=== PATIENT | female | born 1985 ===

== ENCOUNTER 2017-11-16 11:03 | Emergency (ER) | payer BC ==
[2017-11-16 11:35] VITALS: BP 122/66
[2017-11-16] MEDS ORDERED: PROVENTIL IH ONE (11:56)
--- NOTE | 2017-11-16 12:18 | Emergency Department Report ---
ED Female HPI - General Chief complaint: Abdominal Pain Stated complaint: ASTHMA/IRREGULAR SPOTTING BETWEEN PERIODS Time Seen by Provider: 11/16/17 11:48 Source: patient Mode of arrival: Ambulatory Limitations: No Limitations - History of Present Illness Initial comments: Ms Maria is a 32 year-old woman with hx of asthma who presents with various complaints. Vaginal spotting for the last two months. Also with some jurado/brown discharge for 1-2 weeks. LMP 2 weeks ago. Also, has asthma and needs refills on her albuterol and Breo. Is concerned, because she has been on Breo for 2 years and in this time period has gained 98 pounds. Worried because her sister had vaginal spotting and discharge, turned out she had an STD. Wants to be checked. No abdominal pain. No pain with urination. Normal stools. no fever. MD Complaint: vaginal discharge - Related Data Allergies Allergy/AdvReac Type Severity Reaction Status Date / Time No Known Allergies Allergy Verified 11/16/17 11:31 ED Review of Systems ROS: Stated complaint: ASTHMA/IRREGULAR SPOTTING BETWEEN PERIODS Other details as noted in HPI Comment: All other systems reviewed and negative ED Past Medical Hx - Past Medical History Hx Asthma: Yes - Social History Smoking Status: Never Smoker ED Physical Exam - General Limitations: No Limitations General appearance: alert, in no apparent distress - Head Head exam: Present: atraumatic, normocephalic - Eye Eye exam: Present: normal appearance - ENT ENT exam: Present: normal exam, mucous membranes moist - Neck Neck exam: Present: normal inspection. Absent: tenderness - Respiratory Respiratory exam: Present: wheezes. Absent: respiratory distress, rales - Cardiovascular Cardiovascular Exam: Present: regular rate, normal rhythm - GI/Abdominal GI/Abdominal exam: Present: soft. Absent: distended, tenderness, guarding, rebound - External exam: Present: normal external exam. Absent: erythema, swelling Speculum exam: Present: normal speculum exam, vaginal discharge. Absent: erythema, cervical discharge, vaginal bleeding, foreign body Bi-manual exam: Absent: cervical motion tendernes, adnexal tenderness, adnexal mass - Extremities Exam Extremities exam: Present: normal inspection - Back Exam Back exam: Present: normal inspection. Absent: CVA tenderness (R), CVA tenderness (L) - Neurological Exam Neurological exam: Present: alert, altered, normal gait - Skin Skin exam: Present: warm, dry, intact ED Course Vital Signs 11/16/17 11/16/17 11:10 11:44 Temperature 98.1 F Pulse Rate 71 Respiratory 18 17 Rate Blood Pressure 122/66 O2 Sat by Pulse 99 Oximetry ED Medical Decision Making - Lab Data Lab Results 11/16/17 Range/Units 12:03 Urine Color Yellow (Yellow) Urine Turbidity Clear (Clear) Urine pH 6.0 (5.0-7.0) Ur Specific [place] 1.013 (1.003-1.030) Urine Protein <15 mg/dl (Negative) mg/dL Urine Glucose (UA) Neg (Negative) mg/dL Urine Ketones Neg (Negative) mg/dL Urine Blood Neg (Negative) Urine Nitrite Neg (Negative) Urine Bilirubin Neg (Negative) Urine Urobilinogen < 2.0 (<2.0) mg/dL Ur Leukocyte Esterase Tr (Negative) Urine WBC (Auto) 3.0 (0.0-6.0) /HPF Urine RBC (Auto) 4.0 (0.0-6.0) /HPF U Epithel Cells (Auto) 3.0 (0-13.0) /HPF Urine Bacteria (Auto) 1+ (Negative) /HPF Urine HCG, Qual Negative (Negative) Microbiology 11/16/17 13:01 Wet Prep - Final Vaginal - Medical Decision Making Ms Maria is a 32 year-old woman who presents with vaginal dc and needs medication refill for albuterol. Vaginal dc for some time. Vaginal spotting for two months. Exam with mild suprapubic ttp, vaginal dc, no MT and no adnexal ttp. Suspect this is UTI vs STI vs . Low clinical concern for PID. UA clean. Wet prep with trich and clue cells. Had discussion with patient regarding risk of exposure to other STDs. Has elected for treatment for GC.CT as well. Rocephin and azithromycin here today. Home with flagyl 500mg BID x 7 days for trichomoniasis and BV. will be checked in for STI treatment as well. Not . Safe for dc to home with care instructions, return precautions. Critical care attestation.: If time is entered above; I have spent that time in minutes in the direct care of this critically ill patient, excluding procedure time. ED Disposition Clinical Impression: Bacterial vaginosis, Trichomoniasis Disposition: DC-01 TO HOME OR SELFCARE Is pt being admited?: No Does the pt Need Aspirin: No Condition: Stable Instructions: Abdominal Pain (ED), Bacterial Vaginosis (ED), Trichomoniasis (ED ) Referrals: PRIMARY CARE,MD [Primary Care Provider] - 3-5 Days Forms: STI Treatment and Prevention
[2017-11-16 12:53] LABS: Bacteria,Urine 1+ /HPF (Negative); Bilirubin,Urine NEG (Negative); Blood,Urine NEG (Negative); Color,Urine Yellow (Yellow); Protein,Urine <15 mg/dL mg/dL (Negative); Urobilinogen,Urine < 2.0 mg/dL (<2.0)
[2017-11-16 13:02] LABS: HCG Qualitative,Urine Negative (Negative)
[2017-11-16] MEDS ORDERED: ROCEPHIN IM ONE (14:04)
[2017-11-16] MEDS ORDERED: XYLOCAINE 1% MPF 5 mL INFILTRATI ONE (14:04)
[2017-11-16] MEDS ORDERED: ZITHROMAX PO ONE (14:05)
== END 2017-11-16 15:40 | disposition home or self-care (01) ==
LOC: ED 11:03
DX: N76.0 Acute vaginitis (principal); B96.89 Other specified bacterial agents as the cause of diseases classified elsewhere; A59.9 Trichomoniasis, unspecified; J45.909 Unspecified asthma, uncomplicated
CPT/HCPCS: 81001; 81025; 87210; 87591; 94640; 96372; 99284; J0696

== ENCOUNTER 2017-11-21 12:34 | Emergency (ER) | payer BC ==
[2017-11-21 12:46] VITALS: BP 131/81
[2017-11-21] MEDS ORDERED: ATROVENT IH ONE (12:58)
[2017-11-21] MEDS ORDERED: PROVENTIL IH ONE (12:58)
--- NOTE | 2017-11-21 13:00 | Emergency Department Report ---
Blank Doc - Documentation Documentation: Patient is a 32-year-old black female with past history of asthma who is here for 3 days of asthma asthma exacerbation. Patient takes Briel for maintenance and is run out of this medication. Patient also has albuterol rescue inhaler which is not helping. Patient's his shortness of breath especially when walking and. Patient denies any fevers chills nausea vomiting at this time. Brief physical exam patient does have diffuse whee. Patient will be given albuterol Atrovent treatment with IV Solu-Medrol the patient will be reassessed. Ze
--- NOTE | 2017-11-21 13:59 | Emergency Department Report ---
ED Asthma HPI - General Chief Complaint: Adult Asthma Stated Complaint: DIFFICULTY BREATHING Time Seen by Provider: 11/21/17 12:55 Source: patient Mode of arrival: Ambulatory Limitations: No Limitations - History of Present Illness Initial Comments: Patient is a 32-year-old black female with past history of asthma who is here for 3 days of asthma asthma exacerbation. Patient takes Briel for maintenance and is run out of this medication. Patient also has albuterol rescue inhaler which is not helping. Patient's his shortness of breath especially when walking and. Patient denies any fevers chills nausea vomiting at this time. MD Complaint: "asthma attack" Asthma History: childhood onset Severity: moderate - Related Data Current Asthma Therapy: inhaled bronchodilator Previous Rx's Medication Instructions Recorded Last Taken Type metroNIDAZOLE [Metronidazole] 500 mg PO BID #14 tablet 11/16/17 Unknown Rx Albuterol Sulfate [Ventolin HFA] 2 puff IH Q4H PRN #1 hfa.aer.ad 11/21/17 Unknown Rx Benzonatate [Tessalon Perles] 100 mg PO Q8HR #10 capsule 11/21/17 Unknown Rx Fluticasone/Vilanterol [Breo 1 each IH QDAY #1 aer.pow.ba 11/21/17 Unknown Rx Ellipta 100-25 Mcg INH] Prednisone [predniSONE 10 mg 10 mg PO .TAPER #1 tab.ds.pk 11/21/17 Unknown Rx (6-Day Pack, 21 Tabs)] Allergies Allergy/AdvReac Type Severity Reaction Status Date / Time No Known Allergies Allergy Verified 11/16/17 11:31 ED Review of Systems ROS: Stated complaint: DIFFICULTY BREATHING Other details as noted in HPI Comment: All other systems reviewed and negative ED Past Medical Hx - Past Medical History Hx Asthma: Yes - Surgical History Past Surgical History?: No - Social History Smoking Status: Never Smoker Substance Use Type: Alcohol - Medications Home Medications: Home Medications Medication Instructions Recorded Confirmed Last Taken Type metroNIDAZOLE [Metronidazole] 500 mg PO BID #14 tablet 11/16/17 Unknown Rx Albuterol Sulfate [Ventolin HFA] 2 puff IH Q4H PRN #1 hfa.aer.ad 11/21/17 Unknown Rx Benzonatate [Tessalon Perles] 100 mg PO Q8HR #10 capsule 11/21/17 Unknown Rx Fluticasone/Vilanterol [Breo 1 each IH QDAY #1 aer.pow.ba 11/21/17 Unknown Rx Ellipta 100-25 Mcg INH] Prednisone [predniSONE 10 mg 10 mg PO .TAPER #1 tab.ds.pk 11/21/17 Unknown Rx (6-Day Pack, 21 Tabs)] ED Physical Exam - General Limitations: No Limitations General appearance: alert, in no apparent distress - Head Head exam: Present: atraumatic, normocephalic - Eye Eye exam: Present: normal appearance - ENT ENT exam: Present: mucous membranes moist - Neck Neck exam: Present: normal inspection - Respiratory Respiratory exam: Present: wheezes. Absent: normal lung sounds bilaterally, respiratory distress, rales, rhonchi - Cardiovascular Cardiovascular Exam: Present: regular rate, normal rhythm. Absent: systolic murmur, diastolic murmur, rubs, gallop - GI/Abdominal GI/Abdominal exam: Present: soft, normal bowel sounds - Extremities Exam Extremities exam: Present: normal inspection - Back Exam Back exam: Present: normal inspection - Neurological Exam Neurological exam: Present: alert, oriented X3 - Psychiatric Psychiatric exam: Present: normal affect, normal mood - Skin Skin exam: Present: warm, dry, intact, normal color. Absent: rash ED Course Vital Signs 11/21/17 12:42 Temperature 98.8 F Pulse Rate 82 Respiratory 18 Rate Blood Pressure 131/81 O2 Sat by Pulse 99 Oximetry ED Medical Decision Making - Medical Decision Making Patient received a nebulized treatment for an hour is feeling improved. Wheezing still present but lessened. Patient feels as though she stable go home and feels that she is near her baseline. Patient had meds refilled be discharged home. Critical care attestation.: If time is entered above; I have spent that time in minutes in the direct care of this critically ill patient, excluding procedure time. ED Disposition Clinical Impression: Asthma exacerbation Qualifiers: Asthma severity: moderate Asthma persistence: unspecified Qualified Code(s): J45.901 - Unspecified asthma with (acute) exacerbation Disposition: - TO HOME OR SELFCARE Is pt being admited?: No Does the pt Need Aspirin: No Condition: Stable Instructions: Asthma (ED) Prescriptions: Albuterol Sulfate [Ventolin HFA] 2 puff IH Q4H PRN #1 hfa.aer.ad PRN Reason: Shortness Of Breath Benzonatate [Tessalon Perles] 100 mg PO Q8HR #10 capsule Fluticasone/Vilanterol [Breo Ellipta 100-25 Mcg INH] 1 each IH QDAY #1 aer.pow.ba Prednisone [predniSONE 10 mg (6-Day Pack, 21 Tabs)] 10 mg PO .TAPER #1 tab.ds.pk Referrals: PRIMARY CARE, [Primary Care Provider] - 3-5 Days
== END 2017-11-21 14:22 | disposition home or self-care (01) ==
LOC: ED 12:34
DX: J45.901 Unspecified asthma with (acute) exacerbation (principal)
CPT/HCPCS: 96374; 99283; J2930

== ENCOUNTER 2018-01-23 12:57 | Emergency (ER) | payer SELFPAY ==
[2018-01-23 13:36] VITALS: BP 104/77
[2018-01-23] MEDS ORDERED: PROVENTIL IH ONE (16:44)
[2018-01-23] MEDS ORDERED: ATROVENT IH ONE (16:44)
[2018-01-23] MEDS ORDERED: SOLU-Medrol IM ONE (16:44)
--- NOTE | 2018-01-23 16:49 | Emergency Department Report ---
ED Asthma HPI - General Chief Complaint: Adult Asthma Stated Complaint: ASTHMA Time Seen by Provider: 01/23/18 16:35 Source: patient Mode of arrival: Ambulatory Limitations: No Limitations - History of Present Illness MD Complaint: shortness of breath, wheezing -: days(s) (3) Asthma History: followed by specialist Severity: mild Context: ran out of meds (Breo) Associated Symptoms: dry cough. denies: fever - Related Data Previous Rx's Medication Instructions Recorded Last Taken Type metroNIDAZOLE [Metronidazole] 500 mg PO BID #14 tablet 11/16/17 Unknown Rx Albuterol Sulfate [Ventolin HFA] 2 puff IH Q4H PRN #1 hfa.aer.ad 11/21/17 Unknown Rx Benzonatate [Tessalon Perles] 100 mg PO Q8HR #10 capsule 11/21/17 Unknown Rx Fluticasone/Vilanterol [Breo 1 each IH QDAY #1 aer.pow.ba 11/21/17 Unknown Rx Ellipta 100-25 Mcg INH] Prednisone [predniSONE 10 mg 10 mg PO .TAPER #1 tab.ds.pk 11/21/17 Unknown Rx (6-Day Pack, 21 Tabs)] Fluticasone/Vilanterol [Breo 1 each IH DAILY #1 aer.pow.ba 01/23/18 Unknown Rx Ellipta 100-25 Mcg INH] Allergies Allergy/AdvReac Type Severity Reaction Status Date / Time No Known Allergies Allergy Verified 11/16/17 11:31 ED Review of Systems ROS: Stated complaint: ASTHMA Other details as noted in HPI Comment: All other systems reviewed and negative Constitutional: denies: chills, fever Respiratory: cough, shortness of breath, wheezing Cardiovascular: chest pain ED Past Medical Hx - Past Medical History Hx Asthma: Yes - Social History Smoking Status: Never Smoker Substance Use Type: Alcohol - Medications Home Medications: Home Medications Medication Instructions Recorded Confirmed Last Taken Type metroNIDAZOLE [Metronidazole] 500 mg PO BID #14 tablet 11/16/17 Unknown Rx Albuterol Sulfate [Ventolin HFA] 2 puff IH Q4H PRN #1 hfa.aer.ad 11/21/17 Unknown Rx Benzonatate [Tessalon Perles] 100 mg PO Q8HR #10 capsule 11/21/17 Unknown Rx Fluticasone/Vilanterol [Breo 1 each IH QDAY #1 aer.pow.ba 11/21/17 Unknown Rx Ellipta 100-25 Mcg INH] Prednisone [predniSONE 10 mg 10 mg PO .TAPER #1 tab.ds.pk 11/21/17 Unknown Rx (6-Day Pack, 21 Tabs)] Fluticasone/Vilanterol [Breo 1 each IH DAILY #1 aer.ba 01/23/18 Unknown Rx Ellipta 100-25 Mcg INH] ED Physical Exam - General Limitations: No Limitations General appearance: alert, in no apparent distress - Head Head exam: Present: atraumatic, normocephalic - Eye Eye exam: Present: normal appearance - Neck Neck exam: Present: normal inspection - Respiratory Respiratory exam: Present: wheezes (scant wheezig in left lung field) - Cardiovascular Cardiovascular Exam: Present: regular rate, normal rhythm - GI/Abdominal GI/Abdominal exam: Present: soft. Absent: tenderness - Extremities Exam Extremities exam: Present: normal inspection - Neurological Exam Neurological exam: Present: alert, oriented X3 - Psychiatric Psychiatric exam: Present: normal affect, normal mood - Skin Skin exam: Present: warm, dry, intact, normal color ED Course Vital Signs 01/23/18 01/23/18 01/23/18 13:32 16:41 17:22 Temperature 98.9 F Pulse Rate 99 H Pulse Rate [ 82 Throughout] Respiratory 18 18 Rate Respiratory 22 Rate [ Throughout] Blood Pressure 104/77 O2 Sat by Pulse 98 Oximetry - Reevaluation(s) Reevaluation #1: 01/23/18 17:27 Neb treatments finished. Wheezing resolved. Patient feeling much better. Will DC home. ED Medical Decision Making - Medical Decision Making 32-year-old female with history of asthma presents to ED with shortness of breath and wheezing. Patient reports needs refill on Breo. Nebulizer treatment given, symptoms improved, will DC home - Differential Diagnosis asthma Critical care attestation.: If time is entered above; I have spent that time in minutes in the direct care of this critically ill patient, excluding procedure time. ED Disposition Clinical Impression: Asthma with acute exacerbation Disposition: DC-01 TO HOME OR SELFCARE Is pt being admited?: No Condition: Stable Instructions: Asthma (ED) Prescriptions: Fluticasone/Vilanterol [Breo Ellipta 100-25 Mcg INH] 1 each IH DAILY #1 aerbelkis Referrals: PRIMARY CARE, [Primary Care Provider] - 3-5 Days
== END 2018-01-23 17:42 | disposition home or self-care (01) ==
LOC: ED 12:57
DX: J45.901 Unspecified asthma with (acute) exacerbation (principal)
CPT/HCPCS: 94640; 96372; 99282; J2930

== ENCOUNTER 2018-11-21 16:12 | Outpatient (CLI) | payer MEDICAID ==
[2018-11-21] MEDS ORDERED: LACTATED RINGERS 500 ML IV ONE (17:22)
[2018-11-21 17:47] VITALS: BP 136/64
[2018-11-21 18:10] LABS: Bacteria,Urine 1+ /HPF (Negative); Bilirubin,Urine NEG (Negative); Blood,Urine NEG (Negative); Color,Urine Yellow (Yellow); Mucus,Urine FEW /HPF; Urobilinogen,Urine < 2.0 mg/dL (<2.0)
--- NOTE | 2018-11-21 18:42 | Ultrasound Report ---
Limited OB Ultrasound Biophysical profile HISTORY: Patient complaining of leaking amniotic fluid, estimated gestational age of 34 weeks and 0 d ays by last menstrual period. TECHNIQUE: Grayscale and color Doppler imaging performed. COMPARISON: None FINDINGS: On limited OB ultrasound there is a single intrauterine gestation which is cephalic in presentation. ELSA is 11. heart rate is 143 bpm. Placenta is positioned anteriorly. The fetus received a score of 2 out of 2 for breathing movement, movement, posture, and qualitative amniotic fluid volume. Total score was 8 out of 8. IMPRESSION: 1. Single viable intrauterine gestation as above on this limited OB ultrasound. 2. Normal biophysical profile. Signer Name: Kem Rawls MD Signed: 11/21/2018 6:37 PM Workstation Name: [id number]
== END 2018-11-21 18:58 | disposition home or self-care (01) ==
LOC: TRG 16:12
PROVIDERS: ATTEND Obstetrics & Gynecology
DX: O47.03 False labor before 37 completed weeks of gestation, third trimester (principal); Z3A.34 34 weeks gestation of pregnancy
CPT/HCPCS: 76815; 76819; 81001

== ENCOUNTER 2018-12-12 22:58 | Outpatient (CLI) | payer MEDICAID ==
[2018-12-13 01:16] LABS: Bilirubin,Urine NEG (Negative); Blood,Urine NEG (Negative); Color,Urine Yellow (Yellow); Mucus,Urine 1+ /HPF; Urobilinogen,Urine < 2.0 mg/dL (<2.0)
--- NOTE | 2018-12-13 02:28 | Ultrasound Report ---
US OB BPP wo non-stress, US OB limited INDICATION / CLINICAL INFORMATION: for BPP, ELSA. COMPARISON: 11/21/2018 FINDINGS: A single live fetus is seen in breech position. ELSA is 6.3 which is slightly decreased. heart r ate is 131. BPP is 8 out of 8 IMPRESSION: Single live fetus in breech position. ELSA is 6.3 and heart rate is 131. BPP is 8 out of a Signer Name: Jair Mittal MD FACR Signed: 12/13/2018 2:24 AM Workstation Name: [id number]
[2018-12-13 02:32] LABS: Hematocrit 30.8 % (30.3-42.9); Hemoglobin 10.7 gm/dl (10.1-14.3); Mean Corpuscular HGB Conc 35 % (30-34); Mean Corpuscular Volume 93 fl (79-97); Platelet Count 286 K/mm3 (140-440); Red Blood Count 3.32 M/mm3 (3.65-5.03); Red Cell Distribution Width 14.3 % (13.2-15.2)
[2018-12-13 02:49] LABS: Alanine Aminotransferase 16 units/L (7-56)
[2018-12-13 03:09] LABS: Uric Acid 3.6 mg/dL (3.5-7.6)
[2018-12-13 03:23] VITALS: BP 116/58
== END 2018-12-13 03:40 | disposition home or self-care (01) ==
LOC: TRG 22:58
PROVIDERS: ATTEND Obstetrics & Gynecology
DX: O47.03 False labor before 37 completed weeks of gestation, third trimester (principal); O99.513 Diseases of the respiratory system complicating pregnancy, third trimester; J45.909 Unspecified asthma, uncomplicated; Z3A.37 37 weeks gestation of pregnancy
CPT/HCPCS: 36415; 76815; 76819; 81001; 82565; 83615; 84450; 84460; 84550; 85027

== ENCOUNTER 2019-01-01 18:14 | Inpatient (IN) | payer MEDICAID ==
[2019-01-01 19:37] LABS: Bilirubin,Urine NEG (Negative); Blood,Urine NEG (Negative); Color,Urine Yellow (Yellow); Mucus,Urine 1+ /HPF; Urobilinogen,Urine < 2.0 mg/dL (<2.0)
[2019-01-01 21:03] LABS: Alanine Aminotransferase 20 units/L (7-56); Uric Acid 4.1 mg/dL (3.5-7.6)
[2019-01-01 21:06] LABS: Hematocrit 33.1 % (30.3-42.9); Hemoglobin 11.2 gm/dl (10.1-14.3); Mean Corpuscular HGB Conc 34 % (30-34); Mean Corpuscular Volume 93 fl (79-97); Platelet Count 318 K/mm3 (140-440); Red Blood Count 3.57 M/mm3 (3.65-5.03); Red Cell Distribution Width 14.7 % (13.2-15.2)
--- NOTE | 2019-01-01 21:15 | Ultrasound Report ---
US OB BPP WO NON-STRESS, US OB LIMITED INDICATION / CLINICAL INFORMATION: induced hypertension. TECHNIQUE: Transabdominal scanning was performed. COMPARISON: Ultrasound dated 12/13/2018 and 11/21/2018 FINDINGS: Single intrauterine gestation in cephalic position. Amniotic fluid index is 12.9 cm which is within normal limits. heart rate is 139 bpm. BREATHING MOVEMENT = 2 GROSS BODY MOVEMENT = 2 TONE = 2 QUALITATIVE AMNIOTIC FLUID VOLUME = 2 TOTAL BIOPHYSICAL SCORE = 8/8 IMPRESSION: 1. Normal biophysical score of 8/8. Signer Name: Mick Nolasco MD Signed: 01/01/2019 9:11 PM Workstation Name: [id number]
[2019-01-01] MEDS ORDERED: MINERAL OIL PO PRN (21:47)
[2019-01-01] MEDS ORDERED: BRETHINE IVP PRN (21:47)
[2019-01-01] MEDS ORDERED: XYLOCAINE 2% INFILTRATI ONE (21:47)
[2019-01-01] MEDS ORDERED: AMPICILLIN/NS 2 GM/100 ML 2 GM/100 ML BAG IV ONE (21:47)
[2019-01-01] MEDS ORDERED: ZOFRAN IV PRN (21:47)
[2019-01-01] MEDS ORDERED: SUBLIMAZE IV PRN (21:47)
[2019-01-01] MEDS ORDERED: NARCAN 0.4 MG/1 ML IV PRN (21:47)
[2019-01-01] MEDS ORDERED: CERVIDIL VG ONE (21:47)
[2019-01-01] MEDS ORDERED: STADOL IV PRN (21:47)
[2019-01-01] MEDS ORDERED: BRETHINE SUB-Q PRN (21:47)
[2019-01-01] MEDS ORDERED: PITOCin/NS 20 UNIT/1000ML DRIP 20 UNITS/1,000 ML BAG IV SCH (22:00)
[2019-01-02] MEDS ORDERED: AMPICILLIN/NS 1 GM/50 ML 1 GM/50 ML BAG IV SCH (01:50)
[2019-01-02] MEDS: AMBIEN PO PRN ×2 (02:31→23:25)
--- NOTE | 2019-01-02 07:27 | History and Physical Report ---
History of Present Illness Date of examination: 01/02/19 Date of admission: 01/01/19 22:07 Chief complaint: elevated blood pressures History of present illness: Pt is a 33 year old -[place] JEANETH 01/02/19 at 40w0d presented to triage last night with elevated blood pressures 140/90s and was admitted for induction of labor secondary to gestational hypertension. She has had care at [facility] since 17 wks with comanagement by M complicated by morbid obesity, genital herpes without lesion or prodrome, and asthma. She is GBS Negative. Past History Past Medical History: asthma, other (Morbid Obesity ) Past Surgical History: no surgical history [employer] History: herpes Family/Genetic History: diabetes Social history: no significant social history - Obstetrical History Expected Date of Delivery: 01/02/19 Actual Gestation: 40 Week(s) 0 Day(s) : 2 Para: 1 Hx # Term Pregnancies: 1 Number of Pregnancies: 0 Spontaneous Abortions: 0 Induced : 0 Number of Living Children: 1 Medications and Allergies Allergies Allergy/AdvReac Type Severity Reaction Status Date / Time No Known Allergies Allergy Verified 11/16/17 11:31 Home Medications Medication Instructions Recorded Confirmed Last Taken Type metroNIDAZOLE [Metronidazole] 500 mg PO BID #14 tablet 11/16/17 Unknown Rx Albuterol Sulfate [Ventolin HFA] 2 puff IH Q4H PRN #1 hfa.aer.ad 11/21/17 Unknown Rx Benzonatate [Tessalon Perles] 100 mg PO Q8HR #10 capsule 11/21/17 Unknown Rx Fluticasone/Vilanterol [Breo 1 each IH QDAY #1 aer.pow.ba 11/21/17 Unknown Rx Ellipta 100-25 Mcg INH] Prednisone [predniSONE 10 mg 10 mg PO .TAPER #1 tab.ds.pk 11/21/17 Unknown Rx (6-Day Pack, 21 Tabs)] Fluticasone/Vilanterol [Breo 1 each IH DAILY #1 aer.pow.ba 01/23/18 Unknown Rx Ellipta 100-25 Mcg INH] Active Meds: Active Medications Butorphanol Tartrate (Stadol) 2 mg IV Q2H PRN PRN Reason: Pain , Severe (7-10) Ephedrine Sulfate (Ephedrine Sulfate) 10 mg IV Q2M PRN PRN Reason: Hypotension Fentanyl (Sublimaze) 100 mcg IV Q2H PRN PRN Reason: Labor Pain Oxytocin/Sodium Chloride (Pitocin/Ns 20 Unit/1000ml Drip) 20 units in 1,000 mls @ 125 mls/hr IV DIRECT KALEB Oxytocin/Sodium Chloride (Pitocin/Ns 30 Unit/500ml) 30 units in 500 mls @ 2 mls/hr IV TITR KALEB; Protocol Lactated Ringer's (Lactated Ringers) 1,000 mls @ 125 mls/hr IV DIRECT KALEB Ampicillin Sodium (Ampicillin/Ns 1 Gm/50 Ml) 1 gm in 50 mls @ 100 mls/hr IV Q4HR KALEB; Protocol Mineral Oil (Mineral Oil) 30 ml PO QHS PRN PRN Reason: Constipation Naloxone HCl (Narcan 0.4 Mg/1 Ml) 0.1 mg IV Q2MIN PRN PRN Reason: Res Rate </= 8 or 02 SAT < 92% Ondansetron HCl (Zofran) 4 mg IV Q8H PRN PRN Reason: Nausea And Vomiting Terbutaline Sulfate (Brethine) 0.25 mg SUB-Q ONCE PRN PRN Reason: Hyperstimulation/Hypertonicity Terbutaline Sulfate (Brethine) 0.25 mg IVP ONCE PRN PRN Reason: Hyperstimulation/Hypertonicity Zolpidem Tartrate (Ambien) 10 mg PO QHS PRN PRN Reason: Insomnia Last Admin: 01/02/19 02:31 Dose: 10 mg Documented by: Review of Systems All systems: negative - Vital Signs Vital signs: Vital Signs Pulse BP 108 H 142/103 01/01/19 18:42 01/01/19 18:42 Temp Pulse Resp BP Pulse Ox 97 H 20 120/64 01/02/19 03:58 01/01/19 18:53 01/02/19 03:58 - Physical Exam Breasts: Positive: deferred Cardiovascular: Regular rate Lungs: Positive: Clear to auscultation Abdomen: Positive: soft (obese, gravid ) Uterus: Positive: enlarged (gravid ) Extremities: Positive: edema (trace) - Obstetrical FHR: auscultation normal Cervical Dilatation: 0 (per RN ) Results Result Diagrams: 01/01/19 19:37 01/01/19 19:37 Abnormal lab results 01/01/19 01/01/19 Range/Units 19:37 19:37 RBC 3.57 L (3.65-5.03) M/mm3 Creatinine 0.4 L (0.7-1.2) mg/dL Lactate Dehydrogenase 295 H (91-180) units/L All other labs normal. Assessment and Plan A: IUP at 40w0d Gestational HTN Morbid Obesity Asthma Genital Herpes without lesion or prodrome GBS Negative NO VACCINES FOR PT OR BABY, DESIRES NO BATH FOR 24 HRS AFTER P: Admit to labor and delivery PIH panel Induction of labor with cervidil Closely monitor maternal and status.
[2019-01-02] MEDS: LACTATED RINGERS 1,000 ML IV SCH ×2 (09:39→18:52)
[2019-01-02] MEDS ORDERED: CERVIDIL VG ONE (16:30)
[2019-01-03] MEDS: PITOCin/NS 30 UNIT/500ML 30 UNITS/500 ML BAG IV SCH ×2 (05:08→06:39)
--- NOTE | 2019-01-03 13:02 | Progress Note ---
Assessment and Plan Reviewed r/b/a of Cook's Catheter. Pt requests placement. Attempted to place, unsuccessful due to maternal habitus and high station. Will continue low dose Pitocin. Subjective - Subjective Date of service: 01/03/19 Principal diagnosis: Gestational hypertension at term Interval history: Pt is a 33 yo at 40 wks EGA. She has been admitted for IOL for gestational hypertension. She is s/p Cervidil x2 and now low dose Pitocin. SVE ft/th/high. Patient reports: movement normal, contractions, no new complaints, no loss of fluid, no vaginal bleeding Objective - Vital Signs Vital Signs: Vital Signs - 12hr 01/03/19 01/03/19 01/03/19 03:23 04:56 04:57 Pulse Rate 83 90 81 Blood Pressure 119/81 154/101 158/100 O2 Sat by Pulse Oximetry 01/03/19 01/03/19 01/03/19 04:58 05:38 06:55 Pulse Rate 85 74 75 Blood Pressure 149/92 132/79 142/85 O2 Sat by Pulse Oximetry 01/03/19 01/03/19 01/03/19 10:57 11:02 11:07 Pulse Rate 98 H 74 100 H Blood Pressure O2 Sat by Pulse 98 99 99 Oximetry 01/03/19 01/03/19 01/03/19 11:12 11:17 11:22 Pulse Rate 97 H 98 H 96 H Blood Pressure O2 Sat by Pulse 100 99 98 Oximetry 01/03/19 01/03/19 01/03/19 11:27 11:32 11:37 Pulse Rate 95 H 92 H 87 Blood Pressure O2 Sat by Pulse 98 98 97 Oximetry 01/03/19 01/03/19 01/03/19 11:42 11:47 11:52 Pulse Rate 91 H 108 H 89 Blood Pressure O2 Sat by Pulse 98 98 99 Oximetry - Exam Abdomen: Present: normal appearance (gravid), soft Uterus: Present: normal FHR: auscultation normal, category 1 Uterine Contraction Monitor Mode: External Cervical Dilatation: 0.5 Cervical Effacement Percentage: 10 station: high Uterine Contraction Frequency (min): 7 Uterine Contraction Pattern: Irregular Uterine Tone Measurement Phase: Resting (soft) Extremities: normal - Labs Labs: Abnormal Labs 01/01/19 01/01/19 19:37 19:37 RBC 3.57 L Creatinine 0.4 L Lactate Dehydrogenase 295 H
[2019-01-03] MEDS: AMBIEN PO PRN (23:20)
[2019-01-04] MEDS: LACTATED RINGERS 1,000 ML IV SCH (00:13)
[2019-01-04] MEDS: PITOCin/NS 30 UNIT/500ML 30 UNITS/500 ML BAG IV SCH ×2 (00:13→05:32)
--- NOTE | 2019-01-04 01:25 | Event Note ---
Date: 01/04/19 Nurse called for a patient with IOL for MO. Per the nurse there was a difficulty in keeping the patient on the monitor. As I arrived NST reactive baseline 120- 130s. cat1. Pelvic exam ft/thick /high. Will continue to follow closely with maternal and status. Pitocin off for now. Will restart pitocin at low dose.
[2019-01-04 07:39] LABS: Basophils % (Auto) 0.4 % (0.0-1.8); Eosinophils # (Auto) 0.1 K/mm3 (0.0-0.4); Hematocrit 29.4 % (30.3-42.9); Lymphocytes % (Auto) 33.7 % (13.4-35.0); Mean Corpuscular HGB Conc 34 % (30-34); Mean Corpuscular Volume 93 fl (79-97); Monocytes # (Auto) 0.5 K/mm3 (0.0-0.8); Platelet Count 267 K/mm3 (140-440); Red Blood Count 3.17 M/mm3 (3.65-5.03); Red Cell Distribution Width 14.7 % (13.2-15.2)
--- NOTE | 2019-01-04 07:50 | Event Note ---
Date: 01/04/19 Pt without complaints. Category II tracing. Cervix fingertip at last exam. Plan to proceed with primary section for failed induction.
[2019-01-04] MEDS ORDERED: LACTATED RINGERS 1,000 ML IV SCH (08:00)
[2019-01-04] MEDS ORDERED: PITOCin/NS 20 UNIT/1000ML DRIP 20 UNITS/1,000 ML BAG IV SCH ×2 (08:00→15:31)
[2019-01-04] MEDS ORDERED: PEPCID IV NR (08:30)
[2019-01-04] MEDS ORDERED: ceFAZolin 3 GM in NACL 0.9% 100 ML IV NR (08:30)
[2019-01-04] MEDS ORDERED: BICITRA PO NR (08:30)
[2019-01-04] MEDS ORDERED: REGLAN IV NR (08:30)
[2019-01-04] MEDS ORDERED: PHENERGAN PR PRN (10:15)
[2019-01-04] MEDS ORDERED: NARCAN 0.4 MG/1 ML IV PRN ×2 (10:15→15:31)
[2019-01-04] MEDS ORDERED: PHENERGAN PO PRN (10:15)
[2019-01-04] MEDS ORDERED: ZOFRAN IV PRN ×2 (10:15→15:31)
[2019-01-04] MEDS ORDERED: DILAUDID IV PRN ×2 (10:15)
--- NOTE | 2019-01-04 10:15 | Anesthesia Consultation ---
Anesthesia Consult and Med Hx Date of service: 01/04/19 - Airway Anesthetic Teeth Evaluation: Good ROM Head & Neck: Adequate Mental/Hyoid Distance: Adequate Mallampati Class: Class II Intubation Access Assessment: Good - Pulmonary Exam CTA: Yes - Cardiac Exam Cardiac Exam: RRR - Pre-Operative Health Status ASA Pre-Surgery Classification: ASA2 Proposed Anesthetic Plan: Spinal - Pulmonary Hx Asthma: Yes (last attack at 3mths ) COPD: No Hx Pneumonia: No - Cardiovascular System Hx Hypertension: No - Central Nervous System Hx Seizures: No Hx Psychiatric Problems: No - Endocrine Hx Renal Disease: No Hx End Stage Renal Disease: No Hx Hypothyroidism: No Hx Hyperthyroidism: No - Hematic Hx Anemia: No Hx Sickle Cell Disease: No - Other Systems Hx Alcohol Use: No
--- NOTE | 2019-01-04 10:15 | Anesthesia Day of Surgery ---
Anesthesia Day of Surgery - Day of Surgery Patient Examined: Yes Patient H&P Reviewed: Yes Patient is NPO: Yes
[2019-01-04] MEDS ORDERED: DEXMEDETOMIDINE IV ONE (10:23)
[2019-01-04] MEDS ORDERED: SODIUM CHLORIDE FLUSH SYRINGE 10 ML IV NR (11:00)
[2019-01-04] MEDS ORDERED: NACL 0.9% IR ONE (12:15)
[2019-01-04] MEDS ORDERED: WATER FOR IRRIG STERILE IR ONE (12:15)
[2019-01-04] MEDS ORDERED: ZOFRAN ONE (12:51)
[2019-01-04] MEDS ORDERED: TORADOL ONE (12:51)
[2019-01-04] MEDS ORDERED: BENADRYL ONE (12:51)
--- NOTE | 2019-01-04 13:11 | Procedure Note ---
OB Delivery Note - Delivery Date of Delivery: 01/04/19 Surgeon: ELLEN VILLANUEVA Estimated blood loss: other (700 mL) - Section Preop diagnosis: arrest of dilation, other (failed induction ) Postop diagnosis: same section procedure: section, primary low transverse Disposition: PACU Complications: none Narrative: Please see operative report - Infant A at 1 minute: 8 at 5 minutes: 9 Infant Gender: Female (3180g (7lb 0z) @ 1224 pm)
--- NOTE | 2019-01-04 13:18 | Operative Report ---
Operative Report Operative Report: Date of procedure: December Preoperative diagnosis: 1) IUP at 40w2d 2 Failed Induction of Labor 3) Gesta tional HTN 4) Morbid Obesity BMI 54 Postoperative diagnosis: Same Procedure: Primary low transverse section Surgeon: Laure Schaffer MD Anesthesia: Regional Findings: 1) Viable female , Apgars 8 and 9, weight 3180g, (7 lb 0 oz) in cephalic presentation. Nuchal cord x 2. Thick meconium. 2) Normal-appearing uterus ovaries and tubes Estimated blood loss: 800 mL IV fluids:1500 mL Urine output: 100 mL, clear at the end of the procedure Drains: Chaevz to gravity Specimens: Placenta to pathology Complications:None.Counts correct x 3 Disposition: Stable to PACU Indication for procedure: Pt is a 33 year old -[place] female at 40w2d who was admitted for induction of labor secondary to gestational hypertension. After multiple doses of cervical ripening agents, she made no cervical change and remained fingertip. The decision was to proceed with delivery. Operation in detail: After the risks, benefits, alternatives and complications were explained to the patient she gave informed consent for the procedure. She was subsequently taken to the operating room where regional anesthesia was noted to be adequate. She was subsequently placed in the dorsal supine position with leftward tilt and prepped and draped in a normal sterile fashion. heart tones were noted to be 140s prior to incision. A timeout was performed. A Pfannenstiel skin incision was made with the knife and carried down to the layer of the fascia with the Bovie. The fascia was incised in the midline and the fascial incision was extended bilaterally with the Bovie. The fascial incision was then stretched. The rectus muscles were then in the midline. The peritoneum was then entered bluntly. The peritoneal incision was extended with good visualization of the bladder. The peritoneal incision was then stretched. An Leo retractor was then placed. The vesicouterine peritoneum was grasped with smooth pickups and incised with Metzenbaum scissors. Metzenbaum scissors were used to extend the incision bilaterally. The bladder flap was then created digitally and the bladder blade was replaced. A transverse incision was made in the lower uterine segment with a knife and extended bilaterally with the bandage scissors. The head was delivered without difficulty. Nuchal cord x 2 was then reduced. was bulb suctioned at delivery. The cord was clamped and cut and the was handed to NICU staff in attendance. The placenta was then delivered manually. The uterus was then cleared of all clots and debris. The hysterotomy was then reapproximated with 0 Vicryl in a running locked fashion. A second layer of the same suture was used in imbricating fashion. Additional [id number] of 0 Vicryl to achieve hemostasis. The hysterotomy was inspected and hemostasis was noted. The gutters were irrigated and cleared of all clots and debris. The hysterotomy was again inspected and noted to be hemostatic. Surgicel was placed over the hysterotomy. The peritoneum was reapproximated with 2-0 Vicryl in a running fashion incorporating the rectus muscles. The fascia was reapproximated with 0 PDS in a running fashion. The subcutaneous tissue was reapproximated with 3-0 Vicryl in a running fashion. The skin was reapproximated with 4-0 Vicryl in a subcuticular fashion. The incision was then covered with steri strips and a pressure dressing. The procedure was then ended. The patient tolerated the procedure well and was taken to the PACU in stable condition. All instrument, lap, and needle counts were correct 3.
[2019-01-04] MEDS ORDERED: DILAUDID ONE (13:20)
--- NOTE | 2019-01-04 13:28 | Post Anesthesia Evaluation ---
- Post Anesthesia Evaluation Patient Participated: Yes Airway Patent: Yes Stable Respiratory Function: Yes Nausea/Vomiting: No Temp > 96.8F: Yes Pain Manageable: Yes Adequeate Hydration: Yes Anesthesia Complications: No Block Receding Appropriately: Yes Patient on Ventilator: No
[2019-01-04] MEDS ORDERED: SODIUM CHLORIDE FLUSH SYRINGE 10 ML IV SCH (15:31)
[2019-01-04] MEDS ORDERED: TUCKS PAD TP PRN (15:31)
[2019-01-04] MEDS ORDERED: TORADOL IV PRN (15:31)
[2019-01-04] MEDS ORDERED: MILK OF MAGNESIA PO PRN (15:31)
[2019-01-04] MEDS ORDERED: LANSINOH TP PRN (15:31)
[2019-01-04] MEDS ORDERED: D5LR 1,000 ML IV SCH (16:00)
[2019-01-04] MEDS: PERCOCET 5/325 PO PRN ×2 (17:26→22:33)
[2019-01-04] MEDS: ANCEF/NS 1 GM/50 ML 1 GM/50 ML BAG IV SCH (20:35)
[2019-01-05 01:07] LABS: Hematocrit 30.1 % (30.3-42.9); Hemoglobin 10.1 gm/dl (10.1-14.3)
[2019-01-05] MEDS: PERCOCET 5/325 PO PRN ×4 (02:34→21:31)
[2019-01-05] MEDS: MYLICON PO PRN (04:54)
[2019-01-05] MEDS: ANCEF/NS 1 GM/50 ML 1 GM/50 ML BAG IV SCH (04:54)
[2019-01-05] MEDS: IBUPROFEN PO PRN ×2 (05:00→14:26)
--- NOTE | 2019-01-05 07:57 | Progress Note ---
Assessment and Plan A?p POD 1 failed IOl Primary csec routine Post op care await PP cbc Subjective - Subjective Date of service: 01/05/19 Principal diagnosis: Gestational hypertension at term Interval history: failed IOL for MO Patient reports: appetite normal, voiding normally, pain well controlled, flatus, ambulating normally : doing well Objective - Vital Signs Latest vital signs: Vital Signs Temp Pulse Resp BP BP Pulse Ox 01/05/19 06:00 18 01/05/19 05:00 18 01/05/19 04:10 98.2 F 91 H 20 133/79 99 01/05/19 03:34 18 01/05/19 02:34 18 01/04/19 23:33 18 01/04/19 23:29 98.2 F 94 H 20 114/71 99 01/04/19 22:33 18 01/04/19 20:02 98.5 F 85 20 114/61 100 01/04/19 14:55 98.7 F 79 20 147/87 98 01/04/19 14:30 83 14 140/89 99 01/04/19 14:25 69 14 126/84 98 01/04/19 14:20 79 14 116/86 98 01/04/19 14:05 74 17 136/74 96 01/04/19 13:50 72 15 127/73 100 01/04/19 13:35 73 14 124/76 100 01/04/19 13:30 82 15 126/77 100 01/04/19 13:25 98.2 F 92 H 14 117/73 100 01/04/19 11:17 93 H 154/102 01/04/19 10:15 86 144/98 Intake and Output 01/04/19 01/04/19 01/05/19 15:59 23:59 07:59 Intake Total 2001.483 300 240 Output Total 327 797 9355 Balance 7212.483 -600 -1160 Intake: IV 2001.483 60 ANCEF/NS 1 GM/50 ML 1 gm 50 In 50 ml @ 100 mls/hr IV Q8H KALEB Rx#:[id number] PITOCin/NS 30 UNIT/500ML 2.483 30 units In 500 ml @ 2 mls/hr IV TITR KALEB Rx#: [id number] Right Hand 10 Oral 240 240 Output: Urine 992 995 3565 Indwelling 200 Indwelling Catheter 900 600 Void 800 Other: Total, Intake Amount 240 240 Total, Output Amount 900 800 # Voids Indwelling Catheter 1 Void 1 Estimated Blood Loss 700 - Exam Breasts: Present: normal Cardiovascular: Present: Regular rate, Normal S1 Lungs: Present: Clear to auscultation, Normal air movement Abdomen: Present: normal appearance, soft, normal bowel sounds. Absent: distention, tenderness, guarding Uterus: Present: normal, firm, fundal height below umbilicus. Absent: bogginess, tenderness Extremities: Present: normal Deep Tendon Reflex Grade: Normal +2 Incision: Present: normal, dry - Labs Labs: Abnormal lab results 01/05/19 Range/Units 00:55 Hct 30.1 L (30.3-42.9) %
[2019-01-06] MEDS: MYLICON PO PRN (02:46)
[2019-01-06] MEDS: PERCOCET 5/325 PO PRN ×5 (02:46→23:04)
[2019-01-06] MEDS: IBUPROFEN PO PRN ×2 (08:35→19:02)
--- NOTE | 2019-01-06 09:34 | Progress Note ---
Assessment and Plan POD 2 s/p primary LTCS Gestational HTN- continue to monitor. VSS today Reviewed breast feeding education Plan for d/c to home tomorrow per pt preference Subjective - Subjective Principal diagnosis: Gestational hypertension at term Interval history: Pt is a 33 yo now on POD2 s/p primary LTCS for failed IOL. Gestational HTN. Patient reports: appetite normal, voiding normally, pain well controlled, ambulating normally, other (unsure of flatus) : doing well, nursing well, bottle feeding (PRN) Objective - Vital Signs Latest vital signs: Vital Signs Temp Pulse Resp BP BP Pulse Ox 01/06/19 07:54 98.0 F 101 H 20 137/88 98 01/06/19 02:46 18 01/06/19 00:07 98.2 F 92 H 18 129/60 100 01/05/19 18:37 97.9 F 116 H 18 130/87 97 01/05/19 18:25 97.9 F 18 130/87 Intake and Output 01/05/19 01/06/19 01/06/19 23:59 07:59 15:59 Intake Total 640 240 Output Total 400 Balance 240 240 Intake: Oral 540 240 Intake, Free Water 100 Output: Urine 400 Void 400 Other: Total, Intake Amount 240 240 Total, Output Amount 400 # Voids Void 1 1 - Exam Cardiovascular: Present: Regular rate, Normal S1, Normal S2, No murmurs Lungs: Present: Clear to auscultation, Normal air movement Abdomen: Present: normal appearance, soft, tenderness, normal bowel sounds Uterus: Present: normal, firm, fundal height below umbilicus Extremities: Present: normal Incision: Present: normal, dry, intact
--- NOTE | 2019-01-06 11:16 | Discharge Summary ---
Providers - Providers Date of Admission: 01/01/19 22:07 Date of discharge: 01/07/19 Attending physician: CLAUDIA VALADEZ Primary care physician: CLAUDIA VALADEZ Hospitalization Reason for admission: induction of labor (for gestational hypertension) Delivery: Procedure: primary low transverse Episiotomy: none Laceration: none Incision: normal, dry, intact Other procedures: none complications: none Discharge diagnosis: IUP at term delivered baby: female Hospital course: Pt is a 33 yo now who was admitted for gestational hypertension at term. She underwent an induction of labor and never dilated past 1cm. A primary LTCS was performed without complication. Hospital course uneventful. Condition at discharge: Good Disposition: DC- TO HOME OR SELFCARE Plan - Discharge Medications Prescriptions: Ferrous Sulfate [Feosol 325 MG tab] 325 mg PO BID #60 tablet Ibuprofen [Motrin] 800 mg PO Q8HR PRN #30 tablet PRN Reason: Pain, Moderate (4-6) oxyCODONE /ACETAMINOPHEN [Percocet 5/325] 1 tab PO Q6HR PRN #40 tablet PRN Reason: Pain - Provider Discharge Summary Activity: routine, no sex for 6 weeks, no heavy lifting 4 weeks, no strenuous exercise Diet: routine Instructions: routine Additional instructions: [] Smoking cessation referral if applicable(refer to patient education folder for contact #) [] Refer to [facility] Booklet Call your doctor immediately for: * Fever > 100.5 * Heavy vaginal bleeding ( >1 pad per hour) * Severe persistent headache * Shortness of breath * Reddened, hot, painful area to leg or breast * Drainage or odor from incision. * Keep incision clean and dry at all times and follow doctor's instructions reg arding bathing/showering - Follow up plan Follow up: CLAUDIA VALADEZ MD [Primary Care Provider] - 14 Days (Please call to schedule appointment with [facility] results [facility].)
[2019-01-07] MEDS: PERCOCET 5/325 PO PRN ×2 (05:23→13:45)
[2019-01-07] MEDS: IBUPROFEN PO PRN ×2 (05:24→13:44)
--- NOTE | 2019-01-07 10:49 | Progress Note ---
Assessment and Plan POD 3 s/p primary LTCS Gestational HTN- vital signs now stable Reviewed breast feeding education Discharge to home today Reviewed recommendation of Vitamin K injection for infant, due to risk of bleeding, including intracranial hemorrhage and even . Pt elects for oral vitamin K. Provided resources, pt will order vitamin K today and administer ZACK, 1 week later, and at 4-6 months of life. Subjective - Subjective Date of service: 01/07/19 Principal diagnosis: POD3 Interval history: Pt is a 33 yo now on POD3 s/p primary LTCS for failed IOL. Gestational HTN. Patient reports: appetite normal, voiding normally, pain well controlled, flatus, ambulating normally : doing well, nursing well (desires to breast feed), bottle feeding Objective - Vital Signs Latest vital signs: Vital Signs Temp Pulse Resp BP BP Pulse Ox 01/07/19 09:00 98.0 F 95 H 18 126/69 97 01/06/19 23:25 98.5 F 99 H 20 139/88 100 01/06/19 16:11 98.0 F 105 H 20 143/89 99 Intake and Output 01/06/19 01/07/19 01/07/19 23:59 07:59 15:59 Intake Total 1100 240 Balance 1100 240 Intake: Oral 860 240 Intake, Free Water 240 Other: Total, Intake Amount 240 240 # Voids Indwelling Catheter 1 Void 1 1 - Exam Breasts: Present: normal (filling) Cardiovascular: Present: Regular rate, Normal S1, Normal S2, No murmurs Lungs: Present: Clear to auscultation, Normal air movement Abdomen: Present: normal appearance, soft, normal bowel sounds Uterus: Present: normal, firm Extremities: Present: normal Incision: Present: normal, dry, intact
[2019-01-07 12:24] VITALS: BP 125/73
== END 2019-01-07 14:32 | disposition home or self-care (01) | DRG 765 ==
LOC: TRG 18:14 → LD 22:07 → OB 01-04 14:53
PROVIDERS: ADMIT Obstetrics & Gynecology; ATTEND Obstetrics & Gynecology
PROC: 10D00Z1 Extraction of Products of Conception, Low, Open Approach (ICD-10-PCS; principal; 2019-01-04)
DX: O13.4 Gestational [pregnancy-induced] hypertension without significant proteinuria, complicating childbirth (principal); O98.32 Other infections with a predominantly sexual mode of transmission complicating childbirth; Z37.0 Single live birth; J45.909 Unspecified asthma, uncomplicated; Z3A.40 40 weeks gestation of pregnancy; E66.01 Morbid (severe) obesity due to excess calories; A60.00 Herpesviral infection of urogenital system, unspecified; O61.9 Failed induction of labor, unspecified; O77.0 Labor and delivery complicated by meconium in amniotic fluid; O99.214 Obesity complicating childbirth; O69.1XX0 Labor and delivery complicated by cord around neck, with compression, not applicable or unspecified; O99.52 Diseases of the respiratory system complicating childbirth; Z79.899 Other long term (current) drug therapy
CPT/HCPCS: 36415; 76815; 76819; 81001; 82565; 83615; 84450; 84460; 84550; 85014; 85018; 85025; 85027; 86850; 86900; 86901; G0378; J0690; J1170; J1200; J1885; J2405; J2590; J2765; J3010; J3105; J3490; J7120; J7121